=== PATIENT | female | born 1985 | race American Indian/Alaskan Native ===

== ENCOUNTER 2017-09-08 15:56 | Emergency (ER) | payer MEDICAID ==
[2017-09-08 16:13] VITALS: BP 133/80
[2017-09-08] MEDS ORDERED: MOTRIN PO ONE (19:32)
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
[2017-09-08 19:49] LABS: Bacteria,Urine 1+ /HPF (Negative); Bilirubin,Urine NEG (Negative); Blood,Urine NEG (Negative); Ketones,Urine NEG (Negative); Leukocyte Esterase,Urine MOD (Negative); Mucus,Urine 2+ /HPF; Nitrite,Urine NEG (Negative); Protein,Urine <15 mg/dL mg/dL (Negative); Urobilinogen,Urine < 2.0 mg/dL (<2.0)
[2017-09-08 19:55] LABS: Basophils % (Auto) 0.3 % (0.0-1.8); Eosinophils % (Auto) 7.3 % (0.0-4.3); Hematocrit 32.7 % (30.3-42.9); Hemoglobin 10.1 gm/dl (10.1-14.3); Mean Corpuscular HGB Conc 31 % (30-34); Mean Corpuscular Volume 74 fl (79-97); Platelet Count 282 K/mm3 (140-440); Red Blood Count 4.43 M/mm3 (3.65-5.03); White Blood Count 6.1 K/mm3 (4.5-11.0)
[2017-09-08 19:58] LABS: Mean Corpuscular Hemoglobin 23 pg (28-32); Red Cell Distribution Width 20.3 % (13.2-15.2)
[2017-09-08 20:05] LABS: Anion Gap 15 mmol/L; BUN/Creatinine Ratio 18; Blood Urea Nitrogen 11 mg/dL (7-17); Calcium 8.4 mg/dL (8.4-10.2); Carbon Dioxide 26 mmol/L (22-30); Chloride 102.7 mmol/L (98-107); Creatine Kinase 241 units/L (30-135); Glucose 83 mg/dL (65-100); Sodium 140 mmol/L (137-145)
== END 2017-09-08 21:05 | disposition home or self-care (01) ==
LOC: ED 15:56
DX: J02.9 Acute pharyngitis, unspecified (principal); R53.1 Weakness; R50.9 Fever, unspecified; J45.909 Unspecified asthma, uncomplicated
CPT/HCPCS: 36415; 80048; 81001; 81025; 82140; 82550; 84484; 85025; 87086; 87400; 93005; 93010; 99283

== ENCOUNTER 2017-09-29 12:48 | Emergency (ER) | payer MEDICAID ==
[2017-09-29 13:17] VITALS: BP 110/77
[2017-09-29 13:48] LABS: Basophils % (Auto) 0.5 % (0.0-1.8); Mean Corpuscular HGB Conc 31 % (30-34); Mean Corpuscular Volume 76 fl (79-97); Platelet Count 274 K/mm3 (140-440); Red Blood Count 4.91 M/mm3 (3.65-5.03); White Blood Count 7.6 K/mm3 (4.5-11.0)
[2017-09-29 14:01] LABS: Hematocrit 37.3 % (30.3-42.9); Hemoglobin 11.4 gm/dl (10.1-14.3); Mean Corpuscular Hemoglobin 23 pg (28-32)
[2017-09-29 14:02] LABS: Red Cell Distribution Width 20.1 % (13.2-15.2)
[2017-09-29 14:04] LABS: Anion Gap 13 mmol/L; BUN/Creatinine Ratio 17; Blood Urea Nitrogen 10 mg/dL (7-17); Calcium 8.4 mg/dL (8.4-10.2); Carbon Dioxide 27 mmol/L (22-30); Glucose 95 mg/dL (65-100); Potassium 3.8 mmol/L (3.6-5.0); Sodium 139 mmol/L (137-145)
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
--- NOTE | 2017-09-29 14:28 | XRay Report ---
FINAL REPORT PROCEDURE: XR CHEST ROUTINE 2V TECHNIQUE: PA and lateral chest radiographs were obtained. CPT 58761 HISTORY: Shortness of breath COMPARISON: No prior studies are available for comparison. FINDINGS: Heart: Normal. Mediastinum/Vessels: Normal. Lungs/Pleural space: Normal. Bony thorax: No acute osseous abnormality. Other: IMPRESSION: Normal examination.
== END 2017-09-29 15:19 | disposition home or self-care (01) ==
LOC: ED 12:48
DX: R05 Cough (principal); J45.909 Unspecified asthma, uncomplicated
CPT/HCPCS: 36415; 71020; 80048; 85025; 99284